=== PATIENT | female | born 1965 | race African-American/Black ===

== ENCOUNTER 2021-12-06 05:41 | Day surgery (SDC) | payer OTHER ==
[2021-12-04 12:19] VITALS: BMI 36.3
[2021-12-06] MEDS ORDERED: ACETAMINOPHEN 325 MG TABLET (FP) PO PRN (07:16)
[2021-12-06] MEDS ORDERED: LACTATED RINGERS SOLUTION 1,000 ML IV SCH (07:30)
[2021-12-06 10:50] VITALS: TEMP 98
[2021-12-06 11:37] VITALS: BP 140/66; PULSE 60; RESP 20
== END 2021-12-06 11:34 | disposition home or self-care (01) ==
LOC: JASU-ENDO 05:41
PROVIDERS: ATTEND Internal Medicine Gastroenterology
PROC: 0DBN8ZX Excision of Sigmoid Colon, Via Natural or Artificial Opening Endoscopic, Diagnostic (ICD-10-PCS; principal; 2021-12-06 10:30)
DX: Z12.11 Encounter for screening for malignant neoplasm of colon (principal); D12.7 Benign neoplasm of rectosigmoid junction
CPT/HCPCS: 88305-TC